=== PATIENT | male | born 1980 ===

== ENCOUNTER 2017-12-12 02:59 | Emergency (ER) | payer OTHER ==
[2017-12-12 03:05] VITALS: BP 132/85; PULSE 98; RESP 18; TEMP 98; O2SAT 100
--- NOTE | 2017-12-12 03:27 | ED PDOC ---
HPI: Psych/Substance Abuse Time Seen by Provider: 12/12/17 03:07 Chief Complaint (Nursing): Alcohol Ingestion History Per: Patient, EMS Additional Complaint(s): As per EMS pt. was found sleeping outside. Admits to drinking alcohol. Offers no complaints. Denies fall, trauma. Past Medical History Reviewed: Historical Data, Nursing Documentation, Vital Signs Vital Signs: Last Vital Signs Temp 98 F 12/12/17 03:02 Pulse 98 H 12/12/17 03:02 Resp 18 12/12/17 03:02 BP 132/85 12/12/17 03:02 Pulse Ox 100 12/12/17 03:02 - Medical History PMH: No Chronic Diseases - Family History Family History: States: No Known Family Hx - Allergies Allergies/Adverse Reactions: Allergies Allergy/AdvReac Type Severity Reaction Status Date / Time No Known Allergies Allergy Verified 12/12/17 03:02 Review of Systems ROS Statement: Except As Marked, All Systems Reviewed And Found Negative Physical Exam - Physical Exam Appears: Positive for: Well, Non-toxic, No Acute Distress Head Exam: Positive for: ATRAUMATIC, NORMAL INSPECTION, NORMOCEPHALIC Skin: Positive for: Normal Color, Warm. Negative for: Rash Eye Exam: Positive for: Normal appearance ENT: Positive for: Normal ENT Inspection Neck: Positive for: Normal, Painless ROM Cardiovascular/Chest: Positive for: Regular Rate, Rhythm, Chest Non Tender Respiratory: Positive for: CNT, Normal Breath Sounds Gastrointestinal/Abdominal: Positive for: Normal Exam, Soft. Negative for: Tenderness Back: Positive for: Normal Inspection. Negative for: L CVA Tenderness, R CVA Tenderness, Vertebral Tenderness (including cervical spine) Neurologic/Psych: Positive for: Alert, Oriented, Gait (steady, unassisted), Other (AOB; no slurred speech). Negative for: Aphasia, Facial Droop - ECG O2 Sat by Pulse Oximetry: 100 - Progress ED Course And Treament: FSBS: 94 Disposition - Clinical Impression Clinical Impression: Alcohol intoxication - Patient ED Disposition Is Patient to be Admitted: No - Disposition Disposition: Routine/Home Disposition Time: 03:15 Condition: STABLE Instructions: Alcohol Use - When Is Drinking a Problem? Forms: ID [employer] (Turkmen) Print Language: PASHTO
== END 2017-12-12 03:30 | disposition home or self-care (01) ==
LOC: H.ER 02:59
DX: F10.129 Alcohol abuse with intoxication, unspecified (principal)